=== PATIENT | male | born 1930 | race Caucasian/White ===

== ENCOUNTER 2018-09-30 15:18 | Inpatient (IN) | payer OTHER ==
--- NOTE | 2018-09-30 15:53 | EDPHY ---
H & P Time Seen by Provider: 09/30/18 15:52 HPI/ROS: CHIEF COMPLAINT: Right toe redness and wound HISTORY OF PRESENT ILLNESS: Patient moved here from [place] recently and for the 1st time in many decades started wearing shoes that were not sandals. He has a history of diabetes and atrial fibrillation. He developed a wound on his right 3rd toe and some pain there 2 weeks ago and then his daughter noted that there is a wound on the plantar surface 3 days ago and today the wound is red, he has an open wound on the top of his foot, there is redness spreading to the lower leg with some associated swelling and increasing pain. Symptoms moderate worse with palpation or movement. REVIEW OF SYSTEMS: Eye: no change in vision ENT: no sore throat Cardiac: no chest pain or syncope Pulmonary: no cough or SOB Abdomen: no vomiting, diarrhea, abdominal pain Musculoskeletal: HPI Skin: HPI Neuro: no headache Constitutional: no fever : no urinary symptoms A comprehensive 10 point review of systems is otherwise negative aside from elements mentioned in the history of present illness. PAST MEDICAL HISTORY: Includes diabetes, atrial fibrillation, chronic kidney injury Social history: Recently moved here from [place], here with his daughter General Appearance: Alert and conversant, cooperative. Eyes: No scleral icterus. ENT, Mouth: Normal mucous membranes. Respiratory: Normal respiratory effort, breath sounds equal, lungs are clear to auscultation. Cardiovascular: Regular rate and rhythm. Gastrointestinal: Abdomen is soft and non tender. Neurological: Alert, face symmetric, normal motor and sensory in extremities. Skin: Patient has plantar wound on his right 3rd toe on the distal pad. There is wound above with some macerated tissue and erythema spreading proximally [address] up the anterior brown with redness and tenderness. No blister, compartments are soft, he also has some healed scab less than 1 mm on the lateral surface of the right calf. Musculoskeletal: Right leg edema from the ankle to the knee but no calf tenderness. Does have anterior brown tenderness. Psychiatric: Not agitated. Emergency Department course/MDM: Patient presents with infected diabetic toe and foot. He does not have sepsis with normal heart rate and respiratory rate. Not febrile. Plan for wound culture, x-ray, IV Zosyn 4.5 g. Hospitalist admission with surgery consultation. Smoking Status: Never smoked Constitutional: Initial Vital Signs Temperature (C) 36.5 C 09/30/18 15:27 Heart Rate 67 09/30/18 15:27 Respiratory Rate 18 09/30/18 15:27 Blood Pressure 142/70 H 09/30/18 15:27 O2 Sat (%) 95 09/30/18 15:27 Allergies/Adverse Reactions: No Known Allergies Allergy (Unverified 09/30/18 15:27) Home Medications: Medication Instructions Recorded Allopurinol [Allopurinol 300 MG 300 mg PO DAILY 09/30/18 (RX)] Ascorbic Acid [Vitamin C 500 mg 1,000 mg PO DAILY 09/30/18 (*)] Aspirin EC [Aspirin EC 81 mg (*)] 81 mg PO DAILY 09/30/18 Atorvastatin Calcium [Lipitor 20 20 mg PO DAILY 09/30/18 mg (*)] Calcitriol [Calcitriol (*)] 0.25 mcg PO MOWEFR 09/30/18 Cholecalciferol Vit D3 [Vitamin D3 1,000 units PO HS 09/30/18 (*)] Folic Acid 0.8 mg PO DAILY 09/30/18 Glucosamine/Chondroitin 1 each PO DAILY 09/30/18 [Glucosamine/Chondroitin (*)] Omeprazole 40 mg PO DAILY 09/30/18 Oxybutynin Chloride [Oxybutynin 15 mg PO TID 09/30/18 Chloride Er] Prednisolone Acetate/Pf 1 drop EACHEYE BID 09/30/18 [Prednisolone Acet 1% Eye Drop] SITAGLIPTIN PHOSPHATE [Januvia 50 50 mg PO DAILY 09/30/18 mg] Tamsulosin HCl [Flomax 0.4 MG (*)] 0.8 mg PO HS 09/30/18 Travoprost Z 0.004% [Travatan Z 1 drops EACHEYE HS 09/30/18 0.004% (*)] amLODIPine BESYLATE [Norvasc 10 mg 10 mg PO DAILY 09/30/18 (*)] glipiZIDE [Glipizide] 5 mg PO DAILY 09/30/18 Medical Decision Making - Diagnostics Imaging Results: Imaging Impressions Foot X-Ray 09/30/18 16:11 Impression: 1. Erosion distal tuft right third toe with adjacent soft tissue swelling suspicious for osteomyelitis. 2. Vascular calcifications are noted. Consider underlying diabetes. Imaging: I viewed and interpreted images myself Differential Diagnosis: Differential considered including but not limited to cellulitis, fasciitis, abscess, osteomyelitis. Consult/Admit [facility], [place] 1617 - Data Points Medications Given: Discontinued Medications Piperacillin/Tazobactam/Dextrose (Zosyn (Premix)) 100 mls @ 200 mls/hr IV EDNOW ONE PRN Reason: Protocol Stop: 09/30/18 16:40 Last Admin: 09/30/18 16:48 Dose: 100 mls Departure - Departure Disposition: [facility] Acute Clinical Impression: Diabetic infection of right foot Condition: Good
[2018-09-30] MEDS ORDERED: PIPERACILLIN/TAZO 4.5 GM/DEX 100 ML IV ONE (16:11)
[2018-09-30 16:44] LABS: PLATELET COUNT 158 10^3/uL (150-400)
[2018-09-30] MEDS ORDERED: ONDANSETRON 4 MG/2 ML VIAL IVP PRN (16:49)
[2018-09-30] MEDS ORDERED: PROMETHAZINE HCL 25 MG/ML INJ IVP PRN (16:49)
[2018-09-30] MEDS ORDERED: HYDROmorphONE/DILAUDID 1 MG/ML INJ IVP PRN (16:49)
[2018-09-30] MEDS ORDERED: oxyCODONE IR 5 MG TAB PO PRN (16:49)
[2018-09-30] MEDS ORDERED: HYDROCODONE/APAP 5/325 TAB PO PRN (16:49)
[2018-09-30] MEDS ORDERED: ONDANSETRON DISINTEGRATING 4 MG TAB PO PRN (16:49)
[2018-09-30] MEDS ORDERED: ACETAMINOPHEN 325 MG TAB PO PRN (16:49)
[2018-09-30] MEDS ORDERED: D50W 25 GM/50 ML SYR IVP PRN (16:51)
--- NOTE | 2018-09-30 16:52 | PDGENHP ---
History and Physical - Chief Complaint toe pain - History of Present Illness 88 yo M with PMH of dementia, DM2, stage 4 ckd, a fib presenting with complaints of right 3rd toe pain that has been present for at least the last week. He is not sure how it occurred, but notes it started as a blister on the underside of the toe and has since progressed to involve his entire toe and there is pain, swelling and redness extending up the front of his foot to his ankle. Much of this history is obtained by patients daughter present at bedside as his memory is quite limited. He states he has not had fever or chills, other than some pain in the toe he is able to ambulate without issues. He has never had similar issues in the past. He does not believe he had an injury to the toe but given his diabetes he sometimes doesn't feel things on his feet as well and he does wear sandals when he is in [place] and was in [place] recently. History Information - Allergies/Home Medication List Allergies/Adverse Reactions: No Known Allergies Allergy (Unverified 09/30/18 15:27) Home Medications: Allopurinol [Allopurinol 300 MG (RX)] 300 mg PO DAILY 09/30/18 [Last Taken 09/30] Ascorbic Acid [Vitamin C 500 mg (*)] 1,000 mg PO DAILY 09/30/18 [Last Taken ] Aspirin EC [Aspirin EC 81 mg (*)] 81 mg PO DAILY 09/30/18 [Last Taken 09/30/18] Atorvastatin Calcium [Lipitor 20 mg (*)] 20 mg PO DAILY 09/30/18 [Last Taken ] Calcitriol [Calcitriol (*)] 0.25 mcg PO MOWEFR 09/30/18 [Last Taken 09/30/18] Cholecalciferol Vit D3 [Vitamin D3 (*)] 1,000 units PO HS 09/30/18 [Last Taken 09/29/18] Folic Acid 0.8 mg PO DAILY 09/30/18 [Last Taken 09/30/18] Glucosamine/Chondroitin [Glucosamine/Chondroitin (*)] 1 each PO DAILY 09/30/18 [ Last Taken Unknown] Omeprazole 40 mg PO DAILY 09/30/18 [Last Taken 09/30/18] Oxybutynin Chloride [Oxybutynin Chloride Er] 15 mg PO TID 09/30/18 [Last Taken 09/30/18 08:00] Prednisolone Acetate/Pf [Prednisolone Acet 1% Eye Drop] 1 drop EACHEYE BID 09/30 [Last Taken 09/30/18] SITAGLIPTIN PHOSPHATE [Januvia 50 mg] 50 mg PO DAILY 09/30/18 [Last Taken ] Tamsulosin HCl [Flomax 0.4 MG (*)] 0.8 mg PO HS 09/30/18 [Last Taken 09/29/18] Travoprost Z 0.004% [Travatan Z 0.004% (*)] 1 drops EACHEYE HS 09/30/18 [Last Taken Unknown] amLODIPine BESYLATE [Norvasc 10 mg (*)] 10 mg PO DAILY 09/30/18 [Last Taken ] glipiZIDE [Glipizide] 5 mg PO DAILY 09/30/18 [Last Taken 09/30/18] I have personally reviewed and updated: family history, medical history, social history, surgical history - Past Medical History atrial fibrillation, dementia, diabetes type 2, GERD, hypertension, hyperlipidemia, migraines Additional medical history: stage 4 CKD--followed by [facility]. hx of hydrocephalus s/p shunt. hx of brain aneurysm - Surgical History Additional surgical history: Watchman surgery. hydrocephalus shunt. 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, moved here to live with his daughter recently Review of Systems Review of Systems: ROS: 10pt was reviewed & negative except for what was stated in HPI & below Physical Exam Physical Exam: Temp Pulse Resp BP Pulse Ox 36.5 C 67 18 142/70 H 95 09/30/18 15:27 09/30/18 15:27 09/30/18 15:27 09/30/18 15:27 09/30/18 15:27 Constitutional: appears nourished, not in pain Eyes: PERRL, anicteric sclera Ears, Nose, Mouth, Throat: moist mucous membranes, hearing normal Cardiovascular: regular rate and rhythym, no murmur, rub, or gallop, edema Respiratory: no respiratory distress, no rales or rhonchi, clear to auscultation Gastrointestinal: normoactive bowel sounds, soft, non-tender abdomen Genitourinary: no bladder tenderness Skin: warm, normal color Musculoskeletal: full muscle strength Neurologic: CN II-XII Intact, No AAOx3 Psychiatric: interacting appropriately, poor memory Lab Data & Imaging Review 09/30/18 16:26 09/30/18 16:26 WBC 10.85 10^3/uL (3.80-9.50) H 09/30/18 16:26 RBC 4.00 10^6/uL (4.40-6.38) L 09/30/18 16:26 Hgb 13.5 g/dL (13.7-17.5) L 09/30/18 16:26 Hct 39.9 % (40.0-51.0) L 09/30/18 16:26 MCV 99.8 fL (81.5-99.8) 09/30/18 16: MCH 33.8 pg (27.9-34.1) 09/30/18 16: MCHC 33.8 g/dL (32.4-36.7) 09/30/18 16:26 RDW 13.9 % (11.5-15.2) 09/30/18 16: Plt Count 158 10^3/uL (150-400) 09/30/18 16: MPV 10.8 fL (8.7-11.7) 09/30/18 16: Neut % (Auto) 75.3 % (39.3-74.2) H 09/30/18 16: Lymph % (Auto) 9.2 % (15.0-45.0) L 09/30/18 16:26 [place] % (Auto) 9.8 % (4.5-13.0) 09/30/18 16: Eos % (Auto) 5.2 % (0.6-7.6) 09/30/18 16: Baso % (Auto) 0.3 % (0.3-1.7) 09/30/18 16: Nucleat RBC Rel Count 0.0 % (0.0-0.2) 09/30/18 16: Absolute Neuts (auto) 8.18 10^3/uL (1.70-6.50) H 09/30/18 16:26 Absolute Lymphs (auto) 1.00 10^3/uL (1.00-3.00) 09/30/18 16:26 Absolute Monos (auto) 1.06 10^3/uL (0.30-0.80) H 09/30/18 16:26 Absolute Eos (auto) 0.56 10^3/uL (0.03-0.40) H 09/30/18 16:26 Absolute Basos (auto) 0.03 10^3/uL (0.02-0.10) 09/30/18 16:26 Absolute Nucleated RBC 0.00 10^3/uL (0-0.01) 09/30/18 16:26 Immature Gran % 0.2 % (0.0-1.1) 09/30/18 16: Immature Gran # 0.02 10^3/uL (0.00-0.10) 09/30/18 16:26 Visualized and Interpreted imaging results: Yes Interpretation: foot xray: 3rd right toe c/w osteomyelitis Assessment & Plan Assessment: Diabetic infection of right foot (Acute) 88 yo M with PMH including dementia, DM2, CKD presenting with toe osteomyelitis and cellulitis # osteomyelitis/cellulitis: concern for osteo based on exam and xray of foot showing distal erosion of toe. Started on zosyn for now, surgery consulted and suspect this will need debridement or possible amputation. Surgical cultures to be obtained if felt to require surgery. # DM2: likely contributing to above with some c/o peripheral neuropathy, holding oral hypoglycemics for now given likely surgical intervention, SSI ordered. Will get A1c # CKD: appears to be at baseline, though only one prior lab in our system, followed by [facility], renally dosing meds, monitoring renal function # dementia: per daughter this is at baseline, he is frequently only oriented to self but very interactive and socially engaged # a fib: s/p Watchman procedure, evaluated by cardiology recently and ecg at that visit notable for a fib, rate controlled though not chronically on rate controlling medications # gout: continue allopurinol # HTN: well controlled so far, continue amlodipine # GERD: continue PPI # IP status, will require > 48 hours stay for eval/mgmt of above. DNR--[facility] Patient new to my care. Old records reviewed and summarized as above. Care plan reviewed with ER doctor, further hx obtained from patients daughter present at bedside.
[2018-09-30] MEDS: INSULIN LISPRO 100 UNIT/ML SC SCH (18:41)
[2018-09-30] MEDS: CHOLECALCIFEROL VIT D3 1,000 UNITS TAB PO SCH (20:47)
[2018-09-30] MEDS: TAMSULOSIN HCL 0.4 MG CAP PO SCH (20:48)
[2018-09-30] MEDS: TRAVOPROST Z 0.004% 2.5 ML OPHT.BTL EACHEYE SCH (20:54)
[2018-09-30] MEDS: prednisoLONE ACET 1% 5 ML OPHT.BTL EACHEYE SCH (20:54)
[2018-09-30] MEDS ORDERED: PIPERACILLIN/TAZO 3.375 GM/DEX 50 ML IV SCH (22:00)
[2018-09-30] MEDS: OXYBUTYNIN CHLORIDE 5 MG TAB PO SCH (22:08)
[2018-09-30] MEDS: PIPERACILLIN/TAZO 2.25 GM/DEX 50 ML IV SCH (22:08)
[2018-10-01] MEDS: PIPERACILLIN/TAZO 2.25 GM/DEX 50 ML IV SCH ×4 (04:09→22:11)
--- NOTE | 2018-10-01 04:16 | GCON ---
[f rep st] CONSULTATION DATE OF CONSULTATION: 09/30/2018 REASON FOR EVALUATION: Osteomyelitis. REQUESTING PHYSICIAN: Dr. Dina Bartlett. HISTORY OF PRESENT ILLNESS: 88-year-old extremely pleasant male with a significant history for diabetes, chronic kidney disease, dementia and atrial fibrillation who presents to the emergency room with a 2-week history of right 3rd toe pain. He is unable to recall any antecedent traumatic events. He denies any prior antecedent nonhealing wounds. He is otherwise able to walk as far as he wants without thigh, buttock or calf cramping. He denies fevers or chills. He denies other complaints. PAST MEDICAL HISTORY: Dementia, [id number] diabetes mellitus, GERD, hypertension, hyperlipidemia, chronic kidney disease, atrial fibrillation. 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 MEDICATIONS: Allopurinol, vitamin C, aspirin, Lipitor, calcitriol, vitamin D, folate, glucosamine, omeprazole, oxybutynin, prednisolone eyedrops, Januvia, Flomax, Travatan eye drops, amlodipine, glipizide. ALLERGIES: No known drug allergies. SOCIAL HISTORY: The patient has relocated from [place] to live in [place] near his daughter, Lesli. PHYSICAL EXAM: GENERAL: The patient is alert, appropriate comfortable, pleasant in nature. VITAL SIGNS: Temperature 36.4, blood pressure 130/90, heart rate 60, respirations 20. HEENT: Anicteric. NECK: No cervical lymphadenopathy. HEART: Regular. LUNGS: Clear. ABDOMEN: Soft. EXTREMITIES : 2+ radial pulses, 2+ bilateral femoral and popliteal pulses, 2+ right dorsalis pedis and posterior tibial pulses. Right foot and distal leg with edema. Open draining distal right 3rd great toe infection with diffuse swelling. No crepitus. No odor. Seropurulent drainage arising from the distal toe eschar surrounding other toe edema without tenderness or erythema. LABORATORY DATA: White count 11, hemoglobin 14, platelets of 160. Sodium 135, potassium 5.2, chloride 104, CO2 21, BUN 29, creatinine 2.1, glucose 102. Plain x-rays of the right foot disclose right distal toe probable osteomyelitis. IMPRESSION: Right 3rd toe diabetic foot infection with underlying osteomyelitis. RECOMMENDATIONS: Intravenous antibiotics have been appropriately started. Recommend proceeding with right 3rd toe amputation to facilitate healing as his osteomyelitis is unlikely to be salvageable with antibiotic therapy alone in this elderly diabetic male. The patient is agreeable. A message was left to discuss care plan with his daughter. /[id number]/MODL MTDD
[2018-10-01 05:12] LABS: PLATELET COUNT 170 10^3/uL (150-400)
--- NOTE | 2018-10-01 08:18 | HOSPPROG ---
Hospitalist Progress Note Assessment/Plan: 88 yo M with PMH including dementia, DM2, CKD presenting with toe osteomyelitis and cellulitis. First encounter, chart reviewed. Met with the patient and his daughter, Lesli, along w Dr Kaye. *Osteomyelitis, cellulitis -Zosyn -to get a 3rd r toe amputation w Dr Bynum today *DM2 -holding oral hypoglycemics due to the above -SSI *CKD -creat is 2 *dementia -this is impacted by being very [place] *AFIB -s/p Watchman procedure -on rate controlling meds *gout -allopurinol *GERD -PPI *plan: OR today, will closely watch kidney function Subjective: Sergio has no c/o pain. Objective: Vital Signs Temp Pulse Resp BP Pulse Ox 36.3 C 64 16 148/66 H 95 10/01/18 08:00 10/01/18 08:00 10/01/18 08:00 10/01/18 08:00 10/01/18 08:00 Laboratory Results 10/01/18 04:20 10/01/18 04:20 - Physical Exam Constitutional: appears nourished, not in pain, chronically ill appearing Eyes: PERRL Ears, Nose, Mouth, Throat: hard of hearing Cardiovascular: regular rate and rhythym, no murmur, rub, or gallop Respiratory: no respiratory distress Gastrointestinal: normoactive bowel sounds Skin: other (3rd left toe darked with ulceration on bottom side. has some redness and swelling on top of left foot that extends to the brown area.) Musculoskeletal: generalized weakness Psychiatric: interacting appropriately, poor memory ICD10 Worksheet Patient Problems: Problems Problem Status Onset Diabetic infection of right foot Acute
[2018-10-01] MEDS: NS 1,000 ML IV SCH ×2 (10:01→11:55)
[2018-10-01] MEDS: prednisoLONE ACET 1% 5 ML OPHT.BTL EACHEYE SCH ×2 (10:20→21:03)
[2018-10-01] MEDS: ALLOPURINOL 300 MG TAB PO SCH (10:20)
[2018-10-01] MEDS: PANTOPRAZOLE SODIUM 40 MG TAB PO SCH (10:21)
[2018-10-01] MEDS: ATORVASTATIN CALCIUM 20 MG TAB PO SCH (10:21)
[2018-10-01] MEDS: INSULIN LISPRO 100 UNIT/ML SC SCH ×3 (10:23→18:23)
[2018-10-01] MEDS: OXYBUTYNIN CHLORIDE 5 MG TAB PO SCH ×3 (10:24→21:03)
[2018-10-01] MEDS ORDERED: BUPIVACAINE 0.5% 30 ML SDV ONE (10:29)
[2018-10-01] MEDS ORDERED: LR 1,000 ML IV ONE (11:14)
[2018-10-01] MEDS ORDERED: NS 1,000 ML IV ONE (11:20)
--- NOTE | 2018-10-01 11:27 | GCON ---
[f rep st] CONSULTATION DATE OF CONSULTATION: 10/01/2018 REFERRING PHYSICIAN: Melanie Diaz MD REASON FOR CONSULTATION: Right-sided diabetic foot infection with right third toe osteomyelitis. HISTORY OF PRESENT ILLNESS: The patient is an 88-year-old male with a past medical history of diabet es mellitus and chronic renal insufficiency, I am asked to see in consultation for right-sided diabet ic foot infection and third toe osteomyelitis. The patient describes developing a "blood blister" ov er the bottom of the right third toe 2 to 3 weeks ago. Over the last several days, this was associat ed with toe swelling, erythema and tenderness, which spread to the dorsal aspect of the foot. He did not note erythema over his lower leg. He denies fevers, chills, or night sweats. He has not experi enced nausea, vomiting, or diarrhea. He has not noted any significant decrease in sensation over his foot, but was unaware that the blister was present. He has not had any tenderness in the right ingu inal region. Denies any streaking erythema along the right lower extremity. The patient was seen by Nephrology yesterday, at which point in time, his toe was noted to have significant infection prompt ing admission to the hospital. Plain films show erosive changes of the distal tuft of the right thir d toe. Surgical consultation has been obtained with plans for amputation of the right third toe. He is currently receiving Zosyn empirically for diabetic foot infection. Given the above findings, I a m now asked to assist in his ongoing management. PAST MEDICAL HISTORY: Atrial fibrillation, status post Watchman procedure, type 2 diabetes mellitus, hydrocephalus, cerebral aneurysm, gout, dementia, hyperlipidemia, migraines. PAST SURGICAL HISTORY: Hydrocephalus requiring shunting, brain aneurysm requiring clipping, status p ost Watchman procedure. CURRENT MEDICATIONS: Zosyn 2.25 g IV q.6 hours, travoprost and prednisolone eyedrops, Protonix 40 mg orally daily, Ditropan 15 mg p.o. three times daily, insulin sliding scale, glucosamine/chondroitin 1 p.o. daily, folate 1 mg p.o. daily, vitamin D 1000 units p.o. q.h.s., calcitriol 0.25 mcg p.o. , Sunday, Sunday; Lipitor 20 mg p.o. daily; vitamin C 1000 mg p.o. daily; Norvasc 10 mg p.o. bibi ly; allopurinol 300 mg p.o. daily. ALLERGIES: No known drug allergies. SOCIAL HISTORY: The patient quit smoking at age 36. He drinks 1.5 vodka drinks daily. The patient has a pet dog, which is currently in [place]. Recent travel to [place]. He does have exposure of hi s toe to swimming pools. FAMILY HISTORY: Diabetes mellitus. REVIEW OF SYSTEMS: Outside of that noted in the HPI, the remainder of 10-system review is unremarkab le. PHYSICAL EXAMINATION: VITAL SIGNS: Temperature 36.3, heart rate 64, respiratory rate 16, blood pres sure 148/66, oxygen saturation 95% on room air. GENERAL: The patient is an obese male in no acute d istress. He appears nontoxic. HEENT: There is no scleral icterus, conjunctival injection, or conju nctival petechiae. The oropharynx shows moist mucous membranes. Dentures on the upper bridge. No n christoph discharge. No sinus tenderness. NECK: Supple without palpable lymphadenopathy or thyromegaly. CHEST: Clear to auscultation bilaterally without adventitious sounds. The respiratory effort is n ormal. CARDIOVASCULAR: Regular rate and rhythm with distant heart tones. Dorsalis pedis pulses 2+ on the right lower extremity. ABDOMEN: Obese, nontender and nondistended. There is no palpable org anomegaly. Bowel sounds are present. MUSCULOSKELETAL: Right lower extremity shows third toe with s ausage digit deformity; there is a scabbed ulceration present over the distal plantar aspect; there i s slight bogginess to the tip of the toe; there is associated erythema with warmth and tenderness; no expressible drainage; erythema extends under the dorsum of the foot and lower leg. LYMPHATICS: No cervical or supraclavicular nodes. There is no lymphangitis in the right thigh. NEUROLOGIC: The pa tient is alert and interacts appropriately with the examiner with some occasional confusion regarding complex issues; cranial nerves 2-12 are grossly intact. Muscle tone and bulk are normal. Sensation decreased in the foot. LABORATORY DATA: White blood cell count 8.8, hematocrit 41.3, platelets 170, neutrophils 67%, lympho cytes 13%, eosinophils 10%. Serum creatinine 2.0. Plain film of the right foot shows erosive changes of the distal tuft consistent with osteomyelitis; adjacent soft tissue swelling present. IMPRESSION: Diabetic foot infection with osteomyelitis of the right third toe: Current plans in [facility] for amputation of the right third toe, which should be definitive in terms of curing his infection . Suspect concomitant cellulitis will resolve promptly after amputation of toe. Given underlying di abetes and ulceration, at risk for mixed infection including anaerobes with Pseudomonas consideration , although suspect will be of lower likelihood. Will continue Zosyn empirically with anticipated bisi rt duration post amputation provided cellulitis resolves. RECOMMENDATIONS: 1. Agree with plans for amputation of right third toe. 2. Agree with Zosyn 2.25 g IV q.6 hours. 3. Follow clinical response post amputation. 4. Final duration of antibiotics dependent on resolution of cellulitis post amputation. 5. Thank you for this consultation. We will continue to follow the patient with you. /[id number]/MODL
--- NOTE | 2018-10-01 11:27 | PDANEPAE ---
ANE History of Present Illness Amputation of 3rd toe, R. ANE Past Medical History - Cardiovascular History Hx Hypertension: Yes Hx Arrhythmias: Yes Hx Chest Pain: No Hx Coronary Artery / Peripheral Vascular Disease: Yes Cardiovascular History Comment: HTN; chronic atrial fibrillation, s/p Watchman procedure; HPL; peripheral vascular disease - Pulmonary History Hx COPD: No Hx Asthma/Reactive Airway Disease: No Hx Recent Upper Respiratory Infection: No Hx Oxygen in Use at Home: No Hx Sleep Apnea: No - Endocrine History Hx Diabetes: Yes Hypothyroid: No Hyperthyroid: No Obesity: moderate - Renal History Hx Renal Disorders: Yes Renal History Comment: CKD stage IV - Neurological & Psychiatric Hx Hx Neurological and Psychiatric Disorders: Yes Neurological / Psychiatric History Comment: Dementia, migraines. 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 s/p R CEA ANE Review of Systems Review of Systems: - Exercise capacity METS (RN): 3 METS ANE Patient History - Allergies Allergies/Adverse Reactions: No Known Allergies Allergy (Unverified 09/30/18 15:27) - Home Medications Home Medications: Allopurinol [Allopurinol 300 MG (RX)] 300 mg PO DAILY 09/30/18 [Last Taken 09/30] Ascorbic Acid [Vitamin C 500 mg (*)] 1,000 mg PO DAILY 09/30/18 [Last Taken ] Aspirin EC [Aspirin EC 81 mg (*)] 81 mg PO DAILY 09/30/18 [Last Taken 09/30/18] Atorvastatin Calcium [Lipitor 20 mg (*)] 20 mg PO DAILY 09/30/18 [Last Taken ] Calcitriol [Calcitriol (*)] 0.25 mcg PO MOWEFR 09/30/18 [Last Taken 09/30/18] Cholecalciferol Vit D3 [Vitamin D3 (*)] 1,000 units PO HS 09/30/18 [Last Taken 09/29/18] Folic Acid 0.8 mg PO DAILY 09/30/18 [Last Taken 09/30/18] Glucosamine/Chondroitin [Glucosamine/Chondroitin (*)] 1 each PO DAILY 09/30/18 [ Last Taken Unknown] Omeprazole 40 mg PO DAILY 09/30/18 [Last Taken 09/30/18] Oxybutynin Chloride [Oxybutynin Chloride Er] 15 mg PO TID 09/30/18 [Last Taken 09/30/18 08:00] Prednisolone Acetate/Pf [Prednisolone Acet 1% Eye Drop] 1 drop EACHEYE BID 09/30 [Last Taken 09/30/18] SITAGLIPTIN PHOSPHATE [Januvia 50 mg] 50 mg PO DAILY 09/30/18 [Last Taken ] Tamsulosin HCl [Flomax 0.4 MG (*)] 0.8 mg PO HS 09/30/18 [Last Taken 09/29/18] Travoprost Z 0.004% [Travatan Z 0.004% (*)] 1 drops EACHEYE HS 09/30/18 [Last Taken Unknown] amLODIPine BESYLATE [Norvasc 10 mg (*)] 10 mg PO DAILY 09/30/18 [Last Taken ] glipiZIDE [Glipizide] 5 mg PO DAILY 09/30/18 [Last Taken 09/30/18] - Anes Hx Hx Anesthesia Complications (with details): Pt.'s daughter reports pt had difficult intubation, had hoarseness for about a day. - Smoking Hx Smoking Status: Former smoker (quit at age 36) Marijuana use: No - Alcohol Use Alcohol Use: Rarely - Family Anes Hx Family Anes Hx: none ANE Labs/Vital Signs - Labs Result Diagrams: 10/01/18 04:20 10/01/18 04:20 - Vital Signs Blood Pressure: 121/71 Heart Rate: 64 Respiratory Rate: 16 O2 Sat (%): 94 Height: 180.34 cm Weight: 112.037 kg ANE Physical Exam - Airway Neck exam: FROM Mallampati Score: Class 3 Mouth exam: normal dental/mouth exam (Upper front crowns) - Pulmonary Pulmonary: clear to auscultation - Cardiovascular Cardiovascular: irregularly irregular, other (distant heart sounds) - ASA Status ASA Status: III ANE Anesthesia Plan Anesthesia Plan: MAC
[2018-10-01] MEDS ORDERED: PROPOFOL 200 MG/20 ML VIAL ONE ×2 (11:56→12:27)
[2018-10-01] MEDS ORDERED: LIDOCAINE 2% 5 ML SDV ONE (11:57)
[2018-10-01] MEDS ORDERED: RANITIDINE 50 MG/2 ML VIAL ONE (12:09)
--- NOTE | 2018-10-01 12:09 | PDMN ---
Medical Necessity Medical necessity: MCG: M70 cellulitis:M600 osteomyelitis A-2 days; sgy consult: debridement vs amputation , foot Xray shows 3rd R toe c/w osteomyelitis - anticipate > 2 MN ongoing med nec care- further monitoring and tx in pt with extensive comorbidities- 88yo M with PMH dementia, DM2, stage 4 CKD, afib, GERD, HTN, hydrocephalus s/p shunt, hx of brain aneurysm. presents with complaints of R 3rd toe pain X 1 week. swelling and redness extending up from of his foot to ankle.
[2018-10-01] MEDS ORDERED: NALOXONE HCL 0.4 MG/ML INJ IVP PRN (12:32)
[2018-10-01] MEDS ORDERED: fentaNYL 100 MCG/2 ML INJ IVP PRN (12:32)
--- NOTE | 2018-10-01 12:39 | POSTOPPROG ---
Post Op Note Date of Operation: 10/01/18 Surgeon: Wilner Bynum Horse Identifier: Marnie Paige PA-C Anesthesiologist: Kareem Grewal Anesthesia: IV Sedation Pre-op Diagnosis: Right 3rd toe osteomyelitis, diabetes Post-op Diagnosis: Same Procedure: Right 3rd toe amputation Findings: Purulent MIP/DIP Inf/Abcess present in the surg proc area at time of surgery?: Yes Depth: Deep Incisional (Fascial) EBL: Minimal Specimen(s): toe, cultures
--- NOTE | 2018-10-01 13:12 | GOP ---
[f rep st] OPERATIVE REPORT DATE OF OPERATION: 10/01/2018 SURGEON: Wilner Bynum MD CLINICAL DOCUMENTATION NURSE: Marnie Paige PA-C ANESTHESIA: MAC ANESTHESIOLOGIST: Dr. Grewal. PREOPERATIVE DIAGNOSIS: Diabetic right third toe infection with osteomyelitis. POSTOPERATIVE DIAGNOSIS: Diabetic right third toe infection with osteomyelitis. PROCEDURE PERFORMED: Right third toe amputation. FINDINGS: See below. INDICATIONS: 88-year-old male with a significant history for dementia and diabetes with a diabetic right distal third toe infection with underlying osteomyelitis. He is undergoing a toe amputation at this time. Risks and benefits are explained including bleeding, infection. All questions were answered. He desires to proceed. DESCRIPTION OF PROCEDURE: Monitored anesthesia was started. The right foot was infiltrated with 1% lidocaine and 0.5% Marcaine. A fishmouth incision was created around the proximal right third toe. Electrocautery was used to divide the soft tissue and tendon attachments to the toe. The toe was transected proximally at the level of the metacarpal. The toe was removed intact. The proximal bone was rongeured back to smooth edges and rasped clean. Hemostasis was assured. The defect was closed with multiple interrupted nylon sutures. There was excellent bleeding noted at the proximal cut surface and no evidence of purulence at this location. Sterile dressings were applied and the patient taken to Recovery uneventfully. /[id number]/MODL MTDD
--- NOTE | 2018-10-01 16:48 | ASMTCMCOM ---
CM Note CM Note Notes: Pt admitted for diabetic foot infection and had third toe amputation today. Therapies are pending. Pt was asleep when CM approached and CM left message for daughter. Pt lives at [facility] and has significant dementia per hospitalist. Hospitalist anticipates pt will need SNF on discharge and is wondering if pt isn't appropriate for LTC after SNF. Discharge date tbd. D/C Plan: TBD likely SNF Date Signed: 10/01/2018 04:47 PM Electronically Signed By:Franci Diaz
--- NOTE | 2018-10-01 16:59 | ASMTCMCOM ---
CM Note CM Note Notes: ADDENDUM: Spoke with dtr Lesli on the phone. She is open to SNF or discharge home with support from her depending on therapy recommendations. Dtr checks on pt daily at [facility] and fills pill boxes and he gets meals at [facility]. Dtr concedes that pt would not do well in independent living without being checked on daily and is open to evaluation/recommendation as to whether assisted living would be a more appropriate setting after dc or rehab. Date Signed: 10/01/2018 04:59 PM Electronically Signed By:Franci Diaz
[2018-10-01] MEDS: ASCORBIC ACID 500 MG TAB PO SCH (18:01)
[2018-10-01] MEDS: GLUCOSAMINE/CHONDROITIN CAP PO SCH (18:01)
[2018-10-01] MEDS: FOLIC ACID 1 MG TAB PO SCH (18:01)
[2018-10-01] MEDS: TAMSULOSIN HCL 0.4 MG CAP PO SCH (21:03)
[2018-10-01] MEDS: CHOLECALCIFEROL VIT D3 1,000 UNITS TAB PO SCH (21:03)
[2018-10-01] MEDS: TRAVOPROST Z 0.004% 2.5 ML OPHT.BTL EACHEYE SCH (21:04)
[2018-10-02] MEDS ORDERED: OLANZapine 2.5 MG TAB PO ONE (02:32)
[2018-10-02] MEDS: PIPERACILLIN/TAZO 2.25 GM/DEX 50 ML IV SCH ×2 (04:12→10:27)
[2018-10-02] MEDS: INSULIN LISPRO 100 UNIT/ML SC SCH ×3 (08:26→18:25)
[2018-10-02] MEDS: ATORVASTATIN CALCIUM 20 MG TAB PO SCH (09:18)
[2018-10-02] MEDS: ALLOPURINOL 300 MG TAB PO SCH (09:20)
[2018-10-02] MEDS: PANTOPRAZOLE SODIUM 40 MG TAB PO SCH (09:21)
[2018-10-02] MEDS: ASCORBIC ACID 500 MG TAB PO SCH (09:22)
[2018-10-02] MEDS: GLUCOSAMINE/CHONDROITIN CAP PO SCH (09:22)
[2018-10-02] MEDS: FOLIC ACID 1 MG TAB PO SCH (09:22)
[2018-10-02] MEDS: OXYBUTYNIN CHLORIDE 5 MG TAB PO SCH ×3 (09:23→22:45)
[2018-10-02] MEDS: prednisoLONE ACET 1% 5 ML OPHT.BTL EACHEYE SCH ×2 (09:30→22:47)
--- NOTE | 2018-10-02 09:39 | SOAPPROG ---
SOAP Progress Note Assessment/Plan: Assessment/Plan: S/p right 3rd toe amputation POD #1. Doing very well. No wound concerns. Patient denies pain- likely minimal sensation d/t diabetic neuropathy. Okay for discharge from surgical standpoint. Will plan to see him in office in 2 weeks for suture removal. Patient case discussed with Dr. Bynum. 10/02/18 09:13 Subjective: Doing well. Dressing replaced last night. Ambulating with walker without concern. Denies pain or wound drainage. No complaints. Objective: Vital Signs Temp Pulse Resp BP Pulse Ox 36.3 C 80 18 129/77 H 96 10/02/18 08:00 10/02/18 08:00 10/02/18 08:00 10/02/18 08:00 10/02/18 08:00 Microbiology 10/01/18 12:30 Gram Stain - Final Toe - Eswab Laboratory Results 10/01/18 04:20 10/02/18 04:24 10/01/18 10/02/18 10/03/18 05:59 05:59 05:59 Intake Total 640 Output Total 205 Balance 435 ICD10 Worksheet Patient Problems: Problems Problem Status Onset Diabetic infection of right foot Acute
[2018-10-02] MEDS ORDERED: BISACODYL 10 MG SUPP PR PRN (10:00)
[2018-10-02] MEDS ORDERED: LACTULOSE 20 GM/30 ML UDCUP PO PRN (10:00)
[2018-10-02] MEDS ORDERED: CALCITRIOL 0.25 MCG CAP PO SCH (10:15)
[2018-10-02] MEDS: POLYETHYLENE GLYCOL 3350 17 GM PKT PO SCH (10:38)
[2018-10-02] MEDS: TRAVOPROST Z 0.004% 2.5 ML OPHT.BTL LEFTEYE SCH (10:40)
--- NOTE | 2018-10-02 11:04 | ASMTCMCOM ---
CM Note CM Note Notes: CM discussed case w/ Michelle Awad NP. Thania w/ PT worked w/ pt and is recommending SNF. Thania is recommending [facility] since pts daughter and son in law lives so close. CM met w/ pts son in law, Alan for dispo planning. Alan is ok w/ a referral being sent to [facility]. Referral sent. Alan will communicate the recommendation w/ his , Gus. CM to follow. Plan: [facility] Date Signed: 10/02/2018 11:03 AM Electronically Signed By:STEPHANI Patrick
--- NOTE | 2018-10-02 11:21 | PCMIDPN ---
Assessment/Plan: # RLE cellulitis due to diabetic foot ulcer s/p amputation, minimal residual cellulitis mid brown. Cx showing SA - suspect MSSA due to clinical response to Zosyn --3 more days Augmentin --no ID f/u needed --dc zosyn # CrCl 44: Augmentin 875mg BID ok Subjective: patient feeling well c/o about being woken up multiple times during the night Objective: Vital Signs Temp Pulse Resp BP Pulse Ox 36.3 C 64 18 112/69 94 10/02/18 10:45 10/02/18 10:45 10/02/18 10:45 10/02/18 10:45 10/02/18 10:45 Microbiology 10/01/18 12:30 Gram Stain - Final Toe - Eswab Laboratory Results 10/01/18 04:20 10/02/18 04:24 10/01/18 10/02/18 10/03/18 05:59 05:59 05:59 Intake Total 640 Output Total 205 Balance 435 Gen: nontoxic elderly male sitting up in bed NAD RLE small amount erythema remains anterior brown, mild swelling, pulse 1+, 3rd toe amputated and dressing in place, no tenderness (but underlying neuropathy) Pulm: breathing easy Skin: appears very tanned, no rash - Time Spent With Patient Time Spent with Patient: greater than 25 minutes Time Spent with Patient: Greater than 25 minutes spent on this patients care, greater than 50% of time spent counseling, educating, and coordinating care regarding the above mentioned plan. ICD10 Worksheet Patient Problems: Problems Problem Status Onset Diabetic infection of right foot Acute
--- NOTE | 2018-10-02 13:42 | HOSPPROG ---
Hospitalist Progress Note Assessment/Plan: 88 yo M with PMH including dementia, DM2, CKD presenting with toe osteomyelitis and cellulitis. *diabetic foot infection s/p 3rd right toe amputation -was on Zosyn -now on Augmentin for 3 days -cx grew out staph aureus *DM2 -holding oral hypoglycemics due to the above -SSI *CKD -creat is 2 *dementia -this is impacted by being very [place] *AFIB -s/p Watchman procedure -on rate controlling meds *gout -allopurinol *GERD -PPI *plan: PT is recommending a SNF, patient is willing, CM looking at options. He has placement but waiting on authorization through his insurance, has been accepted to [facility]. Subjective: Sergio is feeling fine, has no pain. Objective: Vital Signs Temp Pulse Resp BP Pulse Ox 36.3 C 64 18 112/69 94 10/02/18 10:45 10/02/18 10:45 10/02/18 10:45 10/02/18 10:45 10/02/18 10:45 Microbiology 10/01/18 12:30 Gram Stain - Final Toe - Eswab Laboratory Results 10/01/18 04:20 10/02/18 04:24 10/01/18 10/02/18 10/03/18 05:59 05:59 05:59 Intake Total 640 950 Output Total 205 Balance 435 950 - Physical Exam Constitutional: appears nourished, not in pain, chronically ill appearing Eyes: PERRL Ears, Nose, Mouth, Throat: hard of hearing Cardiovascular: regular rate and rhythym Respiratory: no respiratory distress Skin: warm Musculoskeletal: generalized weakness Psychiatric: interacting appropriately, poor memory ICD10 Worksheet Patient Problems: Problems Problem Status Onset Diabetic infection of right foot Acute
--- NOTE | 2018-10-02 16:42 | ASMTCMCOM ---
CM Note CM Note Notes: CM spoke w/ pts daughter Gus. She would like pt to go to SNF. Gus is willing to self pay until insurance obtains auth. CM gave Mirian Weber's phone number at [facility]. The two will communicate to see if that is an option. CM to follow. Plan: [facility] Date Signed: 10/02/2018 04:42 PM Electronically Signed By:STEPHANI Patrick
[2018-10-02] MEDS: SENNOSIDES/DOCUSATE SODIUM TAB PO SCH (22:46)
[2018-10-02] MEDS: TAMSULOSIN HCL 0.4 MG CAP PO SCH (22:46)
[2018-10-02] MEDS: AMOXICILLIN/CLAVULANATE POT 875/125 MG TAB PO SCH (22:46)
[2018-10-02] MEDS: CHOLECALCIFEROL VIT D3 1,000 UNITS TAB PO SCH (22:46)
[2018-10-03] MEDS: INSULIN LISPRO 100 UNIT/ML SC SCH ×2 (08:20→13:31)
--- NOTE | 2018-10-03 08:45 | HOSPPROG ---
Hospitalist Progress Note Assessment/Plan: 88 yo M with PMH including dementia, DM2, CKD presenting with toe osteomyelitis and cellulitis. *diabetic foot infection s/p 3rd right toe amputation -was on Zosyn -now on Augmentin for 3 days total -cx grew out staph aureus *DM2 -will resume oral agents -SSI *CKD -creat is 2 *dementia -this is impacted by being very [place] *AFIB -s/p Watchman procedure -on rate controlling meds *gout -allopurinol *GERD -PPI *plan: CM working on options w patient and his daughter, Gus. Subjective: Radha feels great, said he got disoriented earlier today, being moved to a new room and various staff coming in threw him off. Objective: Vital Signs Temp Pulse Resp BP Pulse Ox 35.9 C L 68 14 132/74 H 98 10/03/18 07:30 10/03/18 07:30 10/03/18 07:30 10/03/18 07:30 10/03/18 07:30 Microbiology 10/01/18 12:30 Gram Stain - Final Toe - Eswab Laboratory Results 10/01/18 04:20 10/02/18 04:24 10/02/18 10/03/18 10/04/18 05:59 05:59 05:59 Intake Total 640 1650 Output Total 205 1200 Balance 435 450 - Physical Exam Constitutional: no apparent distress, appears nourished Eyes: PERRL Ears, Nose, Mouth, Throat: hard of hearing Cardiovascular: regular rate and rhythym Respiratory: no respiratory distress Skin: warm Musculoskeletal: generalized weakness Neurologic: AAOx3 Psychiatric: interacting appropriately, not anxious, not encephalopathic, thought process linear, poor memory ICD10 Worksheet Patient Problems: Problems Problem Status Onset Diabetic infection of right foot Acute
--- NOTE | 2018-10-03 09:05 | SOAPPROG ---
SOAP Progress Note Assessment/Plan: Assessment/Plan: S/p right 3rd toe amputation POD #2. Doing very well. No wound concerns. Wound redressed today. Patient denies pain and has not required additional pain medication. On Augmentin x3days. Okay for discharge from surgical standpoint. Will plan to see him in office in 2 weeks for suture removal. Patient case discussed with Dr. Bynum. 10/03/18 09:05 Subjective: No new concerns. Denies pain. Ambulating with cane this morning. Anticipating discharge. Objective: Vital Signs Temp Pulse Resp BP Pulse Ox 35.9 C L 68 14 132/74 H 98 10/03/18 07:30 10/03/18 07:30 10/03/18 07:30 10/03/18 07:30 10/03/18 07:30 Microbiology 10/01/18 12:30 Gram Stain - Final Toe - Eswab Laboratory Results 10/01/18 04:20 10/02/18 04:24 10/02/18 10/03/18 10/04/18 05:59 05:59 05:59 Intake Total 640 1650 Output Total 205 1200 Balance 435 450 Physical Exam: Gen: A&O x3, appears comfortable, ambulating with cane- appears steady Extremities: No edema, right 3rd toe incision clean and healing nicely without erythema, no drainage. Decreased sensation bilateral lower extremities Neuro: nonfocal, as above Skin: no rashes, unremarkable ICD10 Worksheet Patient Problems: Problems Problem Status Onset Diabetic infection of right foot Acute
[2018-10-03] MEDS: SENNOSIDES/DOCUSATE SODIUM TAB PO SCH (09:30)
[2018-10-03] MEDS: POLYETHYLENE GLYCOL 3350 17 GM PKT PO SCH (09:30)
[2018-10-03] MEDS: ATORVASTATIN CALCIUM 20 MG TAB PO SCH (09:31)
[2018-10-03] MEDS: AMOXICILLIN/CLAVULANATE POT 875/125 MG TAB PO SCH (09:31)
[2018-10-03] MEDS: ASCORBIC ACID 500 MG TAB PO SCH (09:31)
[2018-10-03] MEDS: PANTOPRAZOLE SODIUM 40 MG TAB PO SCH (09:31)
[2018-10-03] MEDS: ALLOPURINOL 300 MG TAB PO SCH (09:31)
[2018-10-03] MEDS: GLUCOSAMINE/CHONDROITIN CAP PO SCH (09:32)
[2018-10-03] MEDS: FOLIC ACID 1 MG TAB PO SCH (09:32)
[2018-10-03] MEDS: OXYBUTYNIN CHLORIDE 5 MG TAB PO SCH (09:32)
--- NOTE | 2018-10-03 10:54 | PDIAF ---
- Diagnosis Diagnosis: diabetic foot infection s/p 3rd right toe ampuation, renal insuff Code Status: Do Not Resuscitate - Medication Management Discharge Medications: electronically signed and located in the Home Medication List. PICC Care - Routine: N/A - Orders Services needed: Physical Therapy, Occupational Therapy, Speech Language Pathologist Diet Recommendation: ADA 2000 consistent carb Diet Texture: Regular Texture Diet Additional Instructions: May shower with mild soap and water. Keep wound covered with dry gauze. Use assistive device for ambulation as needed. Follow up with Dr. Bynum in 2 weeks for suture removal. Call with wound concerns, fever, chills, pain not controlled with medication, other questions. - Labs/Radiology BMP Date: 10/09/18 - Follow Up Care Current Providers and Referrals: Wilner Bynum MD [Medical Doctor] - follow up in 2 weeks (Call to make appointment) Zaire Bates MD [Primary Care Provider] - As per Instructions
[2018-10-03] MEDS: prednisoLONE ACET 1% 5 ML OPHT.BTL EACHEYE SCH (10:55)
[2018-10-03] MEDS: TRAVOPROST Z 0.004% 2.5 ML OPHT.BTL LEFTEYE SCH (10:55)
[2018-10-03 11:16] VITALS: BP 111/65
--- NOTE | 2018-10-03 11:25 | GDS ---
[f rep st] DISCHARGE SUMMARY DISCHARGE DIAGNOSES: 1. Diabetic foot infection, status post 3rd right toe amputation. 2. Diabetes, type 2. 3. Chronic kidney disease. 4. Dementia. 5. Atrial fibrillation. 6. Gout. 7. Gastroesophageal reflux disease. CONSULTATIONS: Dr. Zaire Kaye, Dr. Wilner Bynum. HISTORY OF PRESENT ILLNESS: Briefly, the patient is an 88-year-old gentleman with a history of diabe laisha, as well as atrial fibrillation and chronic renal insufficiency who was admitted because he had a blood blister over the bottom of his right toe that started 3 weeks ago. It started to progress wit h associated toe swelling, erythema, and tenderness to the dorsal aspect of his foot. He denied any fever or chills. He was seen and evaluated by Dr. Bynum. He had amputation of the 3rd right toe on due to osteomyelitis. The patient has done well during his stay. He will be discharged to [facility] for further care. HOSPITAL COURSE: 1. Diabetic foot infection. This is status post a right toe amputation. He will be on Augmentin fo r a few more days. He was initially treated with Zosyn. 2. Diabetes type 2. Resumed his oral agents. 3. Chronic kidney disease. His creatinine is 2. This is his baseline. [facility]. 4. Dementia. This waxes and wanes. Part of the issue is he is very hard of hearing. 5. Atrial fibrillation. He is status post Watchman procedure. He is on rate-controlling medication s. 6. Gout, on allopurinol. 7. GERD, on a PPI. DISCHARGE CONDITION: Stable. Blood pressure is 132/74, heart rate is 68, respiratory rate 14, O2 sa ts on room air 98%, temperature 35.9 Celsius. MEDICATIONS AT DISCHARGE: Please see the EMR. DISCHARGE INSTRUCTIONS: 1. To follow up with Dr. Bynum in 2 weeks for suture removal. 2. May shower with mild soap and water. Keep the wound covered with dry gauze. Greater than 30 minutes discharging and coordinating the patient's care. /[id number]/MODL
--- NOTE | 2018-10-03 11:35 | ASMTDCNOTE ---
Case Management Discharge Discharge Order Complete? Answers: Yes Patient to Obtain Answers: Other Notes: [facility] Medications Transportation Arranged Answers: Other Transport will Pick (Date 10/03/2018 04:30 PM & Time) EMTALA Complete Answers: No Case Management Transport Answers: No Form Complete Faxed Final Orders Answers: Yes Agency/Facility Transfer Answers: Yes Report Printed & Faxed to Receiving Agency Family Notified Answers: Yes Discharge Comments Notes: CM spoke to Michelle Awad NP regarding d/c POC. Pt is being d/c'd today. [facility] does not have a bed available today. [facility] in [place] has a bed available. Referral made there and they have availabilities. Gus and pts Alan is willing to self pay until they get auth from [facility]. ALVINA informed Alan that [facility] will need a week deposit for pt to come. Alan will go [facility] to complete paperwork. DC orders sent. RAJNI Stahl will call to give report. ALVINA avaialble for changes. Plan: [facility] Date Signed: 10/03/2018 11:34 AM Electronically Signed By:STEPHANI Patrick
--- NOTE | 2018-10-03 15:53 | ASMTLACE ---
LACE Length of stay for Answers: 3 days current admission Acuity / Level of Answers: Yes Care: Did the patient have an inpatient admission? Comorbidities - select Answers: Dementia all that apply Diabetes (uncontrolled or controlled) Moderate or severe liver or renal disease Other Notes: AFib # of Emergency department Answers: 1-2 visits in the last 6 months Score: 16 Date Signed: 10/03/2018 03:53 PM Electronically Signed By:STEPHANI Patrick
--- NOTE | 2018-10-07 14:52 | PQFORM ---
PHYSICIAN QUERY FORM Needs Your Response This query form is being sent to you to assure this patient record is coded properly. Please respond to the question below: SUPERVISOR FINISHING QUESTION: Dear Dr. Bynum, You documented in the 10/01 operative report that "the toe was transected proximally at the level of the "metacarpal." For correct coding purposes can you please specify which area of the toe you actually transected? ___XX__Metatarsal-phalangeal joint Proximal phalanx Proximal interphalangeal joint/middle phalanx Distal interphalangeal joint/distal phalanx Other area of the foot (Please specify) __ Thank you Franci Dominguez, DEPARTMENT OF NATURAL RESOURCES OFFICER HIM/Coding Dept. INSTRUCTIONS FOR RESPONSE: Answer question by clicking on the "Edit Document" button. Move cursor to area below the stars. When complete, hit "Save." Click on the "Sign" button, then click "Sign" again. Type in your PIN and hit "Enter." MTDD
== END 2018-10-03 15:02 | DRG 617 ==
LOC: F3E 17:19
PROVIDERS: ADMIT Internal Medicine; ATTEND Internal Medicine
PROC: 0Y6T0Z0 Detachment at Right 3rd Toe, Complete, Open Approach (ICD-10-PCS; principal; 2018-10-01 12:00)
DX: E11.69 Type 2 diabetes mellitus with other specified complication (principal); M86.8X7 Other osteomyelitis, ankle and foot; E11.42 Type 2 diabetes mellitus with diabetic polyneuropathy; N18.4 Chronic kidney disease, stage 4 (severe); F03.90 Unspecified dementia, unspecified severity, without behavioral disturbance, psychotic disturbance, mood disturbance, and anxiety; I48.91 Unspecified atrial fibrillation; M10.9 Gout, unspecified; K21.9 Gastro-esophageal reflux disease without esophagitis; E78.5 Hyperlipidemia, unspecified; G43.909 Migraine, unspecified, not intractable, without status migrainosus; Z66 Do not resuscitate; Z87.891 Personal history of nicotine dependence
CPT/HCPCS: 96365; 97116-GP; 97161-GP; 97166-GO; J2543; J2704; J2780

== ENCOUNTER → 2018-11-07 | Outpatient (CLI) | payer OTHER | LOC: FIMAGING 13:51 ==

== ENCOUNTER → 2018-11-28 | Outpatient (CLI) | payer OTHER | LOC: FIMAGING 15:48 ==